=== PATIENT | male | born 1990 | race Caucasian/White ===

== ENCOUNTER 2021-04-09 10:17 | Emergency (ER) | payer BC ==
[~2021-04-09] VITALS: Ht 182.9 cm; Wt 83.9 kg
--- NOTE | ~2021-04-09 | EMS ---
[address] [address] EMS Patient Care Report Name: MORGAN TEAGUE Room #: DEP ADRIA Das#: [id number] Admission: 04/09/21 Attend Phys: Discharge: 04/09/21 Date of : [birth year] Report #: [id number] THIS REPORT FOR: //name// Report Transmitted: 04/09/2021 20:13 EMS Care Summary [place], [place]/[facility] Incident [phone] @ 04/09/2021 09:43 Incident Location [address] [place] [address] Patient MORGAN TEAGUE Male, 30 Years 1990 Patient Address [address] [place] [address] Patient History Anxiety, Patient Allergies Amoxicillin,Levaquin, Patient Medications Xanax, Chief Complaint Chest pain Disposition Transported No Lights/[place] Dispatch Reason Chest Pain (Non-Traumatic) Transported To [facility] Narrative Arrived on the scene, with P36, for a 30 y/o male that is lying in a bed in the urgent care. Pt said that he was been having chest pains since Friday. Pt said that he came to the urgent care when he started to have a cough and the chest pains got worse. Pt said that pains feel like a pressure/twisting type [address] [address] EMS Patient Care Report Name: MORGAN TEAGUE Room #: DEP ER Thiago#: [id number] Admission: 04/09/21 Attend Phys: Discharge: 04/09/21 Date of : [birth year] Report #: [id number] pain. Medic on the P36, had the Pt on 3-Lead and established an IV. See Pt Assessment Chest pain See Flowchart. Assisted Pt from the bed to the cot. Transported to the hospital with zero change or incidents. Assisted Pt from the cot to the bed. Transferred care to receiving facility. Initial Vitals @10:00P: 111,MT Suspected: false @10:11P: 109,MT Suspected: false @10:11P: 112,R: 20,BP: 129/84,Pain: 4/10,GCS: 15,Revised Trauma: 12,MT Suspected: false @10:01P: 115,R: 24,BP: 166/79,Pain: 6/10,GCS: 15,Revised Trauma: 12,MT Suspected: false @09:58P: 120,R: 24,BP: 153/94,Pain: 4/10,GCS: 15,CO: 3,SpO2: 99,Revised Trauma: 12,MT Suspected: false Assessments @09:55MENTAL:Event Oriented,Place Oriented,Person Oriented,Time Oriented,SKIN:HEENT:Head/Face: No Abnormalities,Eyes: No Abnormalities,Neck/Airway: No Abnormalities,LUNG SOUNDS:General: No Abnormalities,Left Upper: No Abnormalities,Right Upper: No Abnormalities,Left Lower: No Abnormalities,Right Lower: No Abnormalities,ABDOMEN:General: No Abnormalities,Left Upper: No Abnormalities,Right Upper: No Abnormalities,Left Lower: No Abnormalities,Right Lower: No Abnormalities,PELVIS//GI:No Abnormalities,EXTREMITIES:Left Arm: No Abnormalities,Right Arm: No Abnormalities,Left Leg: No Abnormalities,Right Leg: No Abnormalities,PULSE:Radial: 2+ Normal,NEURO:No Abnormalities, Impression Chest Pain / Discomfort Procedures @10:02 Aspirin - 324 Milligrams (mg) - Oral Response: Improved @10:03 Nitrostat - 0.4 Milligrams (mg) - Sublingual Response: Improved @PTAALS Assessment Response: Unchanged @09:55 ALS Assessment Response: UnchangedSucceeded @PTAIV Therapy - Saline Lock 5cc (18 ga) Site: Antecubital-Left Response: UnchangedSucceeded @10:00 12-Lead ECG Response: UnchangedSucceeded @10:11 12-Lead ECG Response: UnchangedSucceeded @09:58 3-Lead ECG Response: [place] [address] EMS Patient Care Report Name: MORGAN TEAGUE Room #: DEP ADRIA Das#: [id number] Admission: 04/09/21 Attend Phys: Discharge: 04/09/21 Date of : [birth year] Report #: [id number] Timeline STITCHER HAND,ALS Assessment,Response: Unchanged STITCHER HAND,IV Therapy - Saline Lock 5cc 18 ga Site: Antecubital-Left,Response: UnchangedSucceeded, 09:41,Call Received 09:41,Dispatch Notified 09:43,Dispatched 09:44,En Route 09:52,On Scene 09:55,At Patient 09:55,ALS Assessment,Response: UnchangedSucceeded, 09:58,BP: 153/94 M,PULSE: 120,RR: 24 R,SPO2: 99 Ox,ETCO2: ,BG: ,PAIN: 4,GCS: 15, 09:58,3-Lead ECG,Response: UnchangedSucceeded, 10:00,12-Lead ECG,Response: UnchangedSucceeded, 10:00,BP: / M,PULSE: 111,RR: R,SPO2: Ox,ETCO2: ,BG: ,PAIN: ,GCS: , 10:01,BP: 166/79 M,PULSE: 115,RR: 24 R,SPO2: Ox,ETCO2: ,BG: ,PAIN: 6,GCS: 15, 10:02,Aspirin - 324 Milligrams (mg) - Oral,Response: Improved 10:03,Nitrostat - 0.4 Milligrams (mg) - Sublingual,Response: Improved 10:03,Depart Scene 10:11,12-Lead ECG,Response: UnchangedSucceeded, 10:11,BP: / M,PULSE: 109,RR: R,SPO2: Ox,ETCO2: ,BG: ,PAIN: ,GCS: , 10:11,BP: 129/84 M,PULSE: 112,RR: 20 R,SPO2: Ox,ETCO2: ,BG: ,PAIN: 4,GCS: 15, 10:19,At Destination 10:21,Call Closed Disclaimer v1.1 Copyright 2021 [employer] This EMS Care Summary contains data elements from the applicable legal record (which may be displayed differently). It is designed to provide pertinent information for the following purposes: continuity of care, clinical quality, and state data reporting. The complete legal record is available to ED staff and administrators of the receiving hospital in [employer] Patient Tracker. All data is provided "as is."
[2021-04-09 10:42] LABS: ABSOLUTE NEUTROPHILS 3.4 thou/uL (1.4-8.2); BASOPHILS 0.7 % (0.0-2.0); EOSINOPHILS 1.2 % (0.0-3.0); HEMATOCRIT 42.6 % (42.0-52.0); HEMOGLOBIN 14.6 gm/dL (14.0-18.0); LYMPHOCYTES 42.7 % (24.0-44.0); MCH 29.8 pg (26.0-34.0); MCHC 34.3 g/dL (28.0-37.0); MCV 86.9 fL (80.0-100.0); MONOCYTES 7.1 % (1.0-8.0); PLATELET COUNT 203 thou/uL (150-400); POLYS 48.3 % (36.0-66.0); RDW 13.2 % (10.5-14.5)
[2021-04-09 10:51] LABS: CALCIUM 8.9 mg/dL (8.5-10.1); CREATININE 0.8 mg/dL (0.7-1.3)
[2021-04-09] MEDS ORDERED: XANAX1 MG PO (11:03)
[2021-04-09 13:51] VITALS: BP 118/60
--- NOTE | 2021-04-10 10:03 | EKG ---
[address] [place] [address] ELECTROCARDIOGRAM REPORT Name: MORGAN TEAGUE [id number] Admission: 04/09/21 Attend Phys: Discharge: 04/09/21 Date of : [birth year] Report #: [id number] [facility] ED Test Date: 2021-04-09 Test Time: 10:20:40 Pat Name: MORGAN TEAGUE Department: Room: Gender: Robotic Technician: [facility] : 1990 Requested By: Larry Friedman Order Number: [id number] MD: Yonatan Wong Measurements Intervals [place] Rate: 109 P: 57 MT: 141 QRS: 55 QRSD: 98 T: 8 QT: 319 QTc: 430 Interpretive Statements Sinus tachycardia Otherwise normal tracing No previous ECG available for comparison Electronically Signed On 04-10-2021 7:46:46 [employer] by Yonatan Wong [email or web address] <ELECTRONICALLY SIGNED> By: Yonatan Wong MD, [facility] 04/10/21 0746 1020 1020 Yonatan Wong MD, FACC /EPI
== END 2021-04-09 13:53 | disposition home or self-care (01) ==
LOC: ER 10:17
PROVIDERS: Student in an Organized Health Care Education/Training Program
DX: R07.89 Other chest pain (principal); Z20.822 Contact with and (suspected) exposure to COVID-19; F41.9 Anxiety disorder, unspecified; J45.909 Unspecified asthma, uncomplicated; Z88.0 Allergy status to penicillin; Z88.1 Allergy status to other antibiotic agents; Z79.899 Other long term (current) drug therapy